=== PATIENT | female | born 1995 | race Two or more races ===

== ENCOUNTER 2018-07-10 19:00 | Emergency (ER) | payer OTHER ==
[2018-07-10 19:12] VITALS: BP 130/82
--- NOTE | 2018-07-10 19:21 | ED Physician Documentation ---
PD HPI SKIN - Stated complaint Stated Complaint: BILAT LEG ITCHING - Chief complaint Chief Complaint: Wound - History obtained from History obtained from: Patient - History of Present Illness Timing - onset: Other (She and her have had a very itchy rash for the last week or 2. Hers is mostly on the legs and thigh area.) Review of Systems Constitutional: denies: Fever, Chills Respiratory: reports: Reviewed and negative GI: reports: Reviewed and negative : denies: Now [facility] PAST MEDICAL HISTORY - Present Medications Home Medications: Ambulatory Orders Medication Instructions Recorded Confirmed Permethrin [Elimite] 60 gm TP ONCE #2 cream..g. 07/10/18 - Allergies Allergies/Adverse Reactions: Allergies Allergy/AdvReac Type Severity Reaction Status Date / Time No Known Drug Allergies Allergy Verified 07/10/18 19:12 PD ED PE NORMAL - Vitals Vital signs reviewed: Yes - General General: Alert and oriented X 3, No acute distress - Derm Derm: Other (Fine papular rash on the legs and wrist flexor creases consistent with scabies) - Neuro Neuro: Alert and oriented X 3, Normal speech Results - Vitals Vitals: Vital Signs - 24 hr 07/10/18 19:09 Temperature 36.5 C Heart Rate 99 Respiratory 16 Rate Blood Pressure 130/82 H O2 Saturation 100 Oxygen O2 Source Room air Departure - Departure Disposition: 01 Home, Self Care Clinical Impression: Scabies Condition: Good Record reviewed to determine appropriate education?: Yes Instructions: ED Scabies Prescriptions: Permethrin [Elimite] 60 gm TP ONCE #2 cream..g. Comments: Follow-up with your doctor if not better, return if worse. Benadryl as needed [id number] for itching. Your blood pressure was elevated today on check into the emergency department. This does not mean that you have hypertension, it is a common phenomenon to come to the emergency department and have elevated blood pressure. I recommend that you see your primary care physician within the week to have it rechecked when you are feeling better.
== END 2018-07-10 19:27 | disposition home or self-care (01) ==
LOC: ED 19:00
DX: B86 Scabies (principal); R03.0 Elevated blood-pressure reading, without diagnosis of hypertension
CPT/HCPCS: 99282; 99283

== ENCOUNTER 2018-11-16 00:24 | Emergency (ER) | payer OTHER ==
[2018-11-16] MEDS ORDERED: IPRATROPIUM/ALBUTEROL 3 ML NEB INH STA (00:43)
--- NOTE | 2018-11-16 01:08 | XRAY Report ---
Reason: Cough Procedure Date: 11/16/2018 Accession Number: [id number] / [id number] Procedure: XR - Chest 2 View X-Ray CPT Code: 67159 FULL RESULT: EXAM: CHEST RADIOGRAPHY EXAM DATE: 11/16/2018 01:02 AM. CLINICAL HISTORY: Cough. COMPARISON: None. TECHNIQUE: 2 views. FINDINGS: Lungs/Pleura: No focal opacities evident. No pleural effusion. No pneumothorax. Normal volumes. Mediastinum: Heart and mediastinal contours are unremarkable. Other: None. IMPRESSION: Normal 2-view chest radiography. RADIA
[2018-11-16 01:51] VITALS: BP 113/61
--- NOTE | 2018-11-16 01:57 | ED Physician Documentation ---
PD HPI URI - Stated complaint Stated Complaint: COUGH,WHEEZING - Chief complaint Chief Complaint: Resp - History obtained from History obtained from: Patient - History of Present Illness Timing - onset: How many days ago (10) Timing details: Gradual onset Pain level max: 0 Pain level now: 0 Severity Comments: mild Associated symptoms: No: Fever, Chills, Sweats, Chest pain Contributing factors: No: Sick contact, Travel Improves by: Rest Worsened by: No: Activity, Breathing Review of Systems Ten Systems: 10 systems reviewed and negative Constitutional: reports: Reviewed and negative Eyes: reports: Reviewed and negative Ears: reports: Reviewed and negative Nose: reports: Reviewed and negative Throat: reports: Reviewed and negative Cardiac: reports: Reviewed and negative Respiratory: reports: Cough, Wheezing GI: reports: Reviewed and negative : reports: Reviewed and negative Skin: reports: Reviewed and negative Musculoskeletal: reports: Reviewed and negative Neurologic: reports: Reviewed and negative Psychiatric: reports: Reviewed and negative Endocrine: reports: Reviewed and negative Immunocompromised: reports: Reviewed and negative PD PAST MEDICAL HISTORY - Past Medical History Past Medical History: Yes GI: GERD - Past Surgical History Past Surgical History: Yes - Present Medications Home Medications: Ambulatory Orders Medication Instructions Recorded Confirmed Ibuprofen 1 - 2 tab PO DAILY PRN 07/10/18 07/10/18 Omeprazole 20 mg PO DAILY 07/10/18 07/10/18 Permethrin [Elimite] 60 gm TP ONCE #2 cream..g. 07/10/18 Albuterol Sulf [Ventolin Hfa 1 - 2 puffs INH Q4HR PRN #1 inhaler 11/16/18 Inhaler] - Allergies Allergies/Adverse Reactions: Allergies Allergy/AdvReac Type Severity Reaction Status Date / Time No Known Drug Allergies Allergy Verified 11/16/18 00:30 - Living Situation Living Situation: reports: Alone Living Arrangement: reports: At home - Social History Does the pt smoke?: No Smoking Status: Never smoker Does the pt drink ETOH?: Yes Does the pt have substance abuse?: No - Family History Family history: reports: Other (Reviewed and not pertinent) - Immunizations Immunizations are current?: Yes - POLST Patient has POLST: No PD ED PE NORMAL - Vitals Vital signs reviewed: Yes - General General: Alert and oriented X 3, No acute distress - HEENT HEENT: PERRL - Neck Neck: Supple, no meningeal sign - Cardiac Cardiac: RRR, No murmur - Respiratory Respiratory: Clear bilaterally - Abdomen Abdomen: Normal bowel sounds, Soft, Non tender, Non distended - Derm Derm: Warm and dry - Extremities Extremities: No deformity - Neuro Neuro: Alert and oriented X 3 - Psych Psych: Normal mood, Normal affect Results - Vitals Vitals: Vital Signs - 24 hr 11/16/18 11/16/18 11/16/18 00:28 01:13 01:50 Temperature 36.9 C Heart Rate 123 H 97 90 Respiratory 20 18 16 Rate Blood Pressure 131/87 H 113/61 O2 Saturation 100 100 Oxygen O2 Source Room air - Rads (name of study) Chest Xray Radiology: Final report received (WNL) PD MEDICAL DECISION MAKING - ED course Complexity details: reviewed results, re-evaluated patient, considered differential, d/w patient ED course: 23-year-old female with cough. Patient reports subjective improvement after DuoNeb. Discharged with inhaler. Departure - Departure Disposition: 01 Home, Self Care Clinical Impression: Acute URI Instructions: ED URI Viral Follow-Up: Your, PCP [Other] Prescriptions: Albuterol Sulf [Ventolin Hfa Inhaler] 1 - 2 puffs INH Q4HR PRN #1 inhaler PRN Reason: Shortness Of Air/Wheezing Discharge Date/Time: 11/16/18 02:06
== END 2018-11-16 02:06 | disposition home or self-care (01) ==
LOC: ED 00:24
DX: J06.9 Acute upper respiratory infection, unspecified (principal)
CPT/HCPCS: 71046; 94640; 99283